=== PATIENT | female | born 1950 | race African-American/Black ===

== ENCOUNTER → 2017-08-21 | Outpatient (CLI) | payer OTHER | END | disposition home or self-care (01) | LOC: MAMMO 10:59 | DX: Z12.31 Encounter for screening mammogram for malignant neoplasm of breast (principal); I10 Essential (primary) hypertension; R92.0 Mammographic microcalcification found on diagnostic imaging of breast | CPT/HCPCS: 77063; 77067 ==

== ENCOUNTER → 2017-08-25 | Outpatient (CLI) | payer OTHER | END | disposition home or self-care (01) | LOC: MAMMO 13:28 | DX: R92.1 Mammographic calcification found on diagnostic imaging of breast (principal) | CPT/HCPCS: 77065 ==

== ENCOUNTER → 2018-04-09 | Outpatient (CLI) | payer OTHER ==
[2013-08-13 18:27] VITALS: BP 173/83
--- NOTE | 2018-04-12 09:32 | RAD ---
DATE: 04/09/2018 12:45 PM EXAM: MAMMO JAN DIAG LT HISTORY: short-term imaging followup of a probably benign finding in the left breast. COMPARISON: Prior mammographic imaging dating back to 08/21/2017 3-D CC and MLO views of the left breast were performed using digital technique. This study was interpreted with the benefit of Computerized Aided Detection (CAD ). Breast Density: The breast parenchyma is primarily fatty replaced. Breast parenchyma level density A. FINDINGS: The calcifications in the lateral left breast are grossly stable when compared to prior examination. No suspicious left breast mass or architectural distortion is seen. The visualized left axilla is unremarkable. IMPRESSION: Left breast indeterminate microcalcifications, findings for which additional short-term follow-up imaging is advised. BI-RADS CATEGORY: 3 PROBABLY BENIGN FINDING(S)-SHORT INTERVAL FOLLOW-UP SUGGESTED RECOMMENDED FOLLOW-UP: 6M 6 MONTH FOLLOW-UP. Follow-up 6 month mammographic imaging of the left breast is recommended. At that point the patient will be due for contralateral screening examination. PQRS compliance statement: Patient information was entered into a reminder system with a target due date 09/07/2018 for the next mammogram. Mammography is a sensitive method for finding small breast cancers, but it does not detect them all and is not a substitute for careful clinical examination. A negative mammogram does not negate a clinically suspicious finding and should not result in delay in biopsying a clinically suspicious abnormality. "Our facility is accredited by the [employer] Mammography [employer]." REILLYD
== END | disposition home or self-care (01) ==
LOC: MAMMO 10:37
PROVIDERS: ATTEND Pediatrics
DX: Z09 Encounter for follow-up examination after completed treatment for conditions other than malignant neoplasm (principal); R92.8 Other abnormal and inconclusive findings on diagnostic imaging of breast
CPT/HCPCS: 77065; G0279; 77061

== ENCOUNTER → 2018-09-01 | Outpatient (CLI) | payer OTHER ==
[2013-08-13 18:27] VITALS: BP 173/83
--- NOTE | 2018-09-02 07:46 | RAD ---
DATE: 09/01/2018 EXAM: DIGITAL DIAGNOSTIC BILATERAL HISTORY: 6 month follow-up on left COMPARISON: 04/09/2018, 08/25/2017, 08/21/2017 This study was interpreted with the benefit of Computerized Aided Detection (CAD). Breast Density: FATTY The breast parenchyma is primarily fatty replaced. Breast parenchyma level density A. FINDINGS: 2-D and 3-D tomosynthesis imaging was performed in CC and MLO projections. No new or enlarging breast densities are seen. There are coarse benign calcifications in the left breast. A cluster of microcalcifications in the posterolateral aspect of the left breast is unchanged. No new abnormality is detected. IMPRESSION: Unchanged probably benign left breast microcalcifications. Further mammographic surveillance consisting of left mammograms in 6 months and bilateral mammography at one year is suggested. BI-RADS CATEGORY: 3 PROBABLY BENIGN FINDING(S)-SHORT INTERVAL FOLLOW-UP SUGGESTED RECOMMENDED FOLLOW-UP: 6M 6 MONTH FOLLOW-UP PQRS compliance statement: Patient information was entered into a reminder system with a target due date for the next mammogram. Mammography is a sensitive method for finding small breast cancers, but it does not detect them all and is not a substitute for careful clinical examination. A negative mammogram does not negate a clinically suspicious finding and should not result in delay in biopsying a clinically suspicious abnormality. "Our facility is accredited by the [employer] Mammography [employer]."
== END | disposition home or self-care (01) ==
LOC: MAMMO 13:33
PROVIDERS: ATTEND Pediatrics
DX: R92.1 Mammographic calcification found on diagnostic imaging of breast (principal)
CPT/HCPCS: 77066

== ENCOUNTER → 2019-03-07 | Outpatient (CLI) | payer OTHER ==
[2013-08-13 18:27] VITALS: BP 173/83
--- NOTE | 2019-03-07 11:42 | RAD ---
DATE: March 07, 2019 EXAM: MAMMO JAN DIAG LT HISTORY: Follow-up of calcifications of the posterior upper aspect of the left breast in the MLO projection. COMPARISON: September 01, 2018 This study was interpreted with the benefit of Computerized Aided Detection (CAD). 2-D digital mammographic views of the left breast were performed in the CC and MLO projections. 3-D digital tomosynthesis images of the left breast were performed in the CC and MLO projections and reviewed on a computer workstation. FINDINGS: Breast Density: FATTY The breast parenchyma is primarily fatty replaced. Breast parenchyma level density A.. There are no new dominant suspicious masses, new suspicious pleomorphic microcalcifications or evidence of architectural distortion. The group of small calcifications within the upper posterior aspect of the left breast in the MLO projection are stable and most likely are benign. IMPRESSION: Stable calcifications of the left breast. Stable mammogram of the left breast. Recommend bilateral mammography in 6 months. BI-RADS CATEGORY: 3 PROBABLE BENIGN-SHORT TERM F/U RECOMMENDED FOLLOW-UP: 6M 6 MONTH FOLLOW-UP PQRS compliance statement: Patient information was entered into a reminder system with a target due date September 06, 2019 for the next mammogram. Mammography is a sensitive method for finding small breast cancers, but it does not detect them all and is not a substitute for careful clinical examination. A negative mammogram does not negate a clinically suspicious finding and should not result in delay in biopsying a clinically suspicious abnormality. "Our facility is accredited by the [employer] Mammography [employer]." The patient's breast density may affect the ability of mammography to detect breast cancer. There are 4 categories of breast density, A, B, C and D. Breast density A means that most of the breast tissue is replaced with adipose tissue and therefore is not dense. Breast density B means that the breast tissue is mildly dense and scattered. Breast density C means that the breast tissue is heterogeneously dense. Breast density D means that the breast tissue is very dense. Breast densities especially C and D may decrease the sensitivity of mammography to detect breast cancer. Therefore, the patient may benefit from 3-D breast mammography (3D breast tomography) as a part of their screening mammogram. Insurance may or may not pay for this additional imaging. The patient's breast density based on today's mammogram is category A.
== END | disposition home or self-care (01) ==
LOC: MAMMO 14:09
PROVIDERS: ATTEND Pediatrics
DX: R92.1 Mammographic calcification found on diagnostic imaging of breast (principal); N63.0 Unspecified lump in unspecified breast
CPT/HCPCS: 77065; G0279; 77061

== ENCOUNTER → 2019-09-12 | Outpatient (CLI) | payer OTHER ==
[2013-08-13 18:27] VITALS: BP 173/83
--- NOTE | 2019-09-12 11:51 | RAD ---
DATE: 09/12/2019 10:49 AM EXAM: DIGITAL DIAGNOSTIC BILATERAL HISTORY: Six-month follow-up probably benign left breast calcifications COMPARISON: Left digital diagnostic mammogram of 03/07/2019, 09/01/2018 bilateral mammogram, left diagnostic mammogram of 04/09/2018 and bilateral mammogram of 08/21/2017. Bilateral CC and MLO views of the breasts were performed. Bilateral breast tomosynthesis was performed in CC and MLO projections. This study was interpreted with the benefit of Computerized Aided Detection (CAD). FINDINGS: Breast Density: FATTY The Breast Parenchyma is primarily fatty replaced. Breast parenchyma level density A. Stable benign calcifications in the left breast. No suspicious masses, microcalcifications or architectural distortion is present to suggest malignancy in either breast. The visualized axillae are unremarkable. IMPRESSION: No mammographic evidence of malignancy. BI-RADS CATEGORY: 2 BENIGN FINDING(S) RECOMMENDED FOLLOW-UP: 12M 12 MONTH FOLLOW-UP Annual screening mammography is recommended, unless clinically indicated sooner based on symptoms or change in physical exam. PQRS compliance statement: Patient information was entered into a reminder system with a target due date 09/12/2020 for the next mammogram. Mammography is a sensitive method for finding small breast cancers, but it does not detect them all and is not a substitute for careful clinical examination. A negative mammogram does not negate a clinically suspicious finding and should not result in delay in biopsying a clinically suspicious abnormality. "Our facility is accredited by the [employer] Mammography [employer]."
== END | disposition home or self-care (01) ==
LOC: MAMMO 10:21
PROVIDERS: ATTEND Nurse Practitioner
DX: R92.8 Other abnormal and inconclusive findings on diagnostic imaging of breast (principal); N64.89 Other specified disorders of breast
CPT/HCPCS: 77066

== ENCOUNTER → 2020-10-04 | Outpatient (CLI) | payer OTHER ==
[2013-08-13 18:27] VITALS: BP 173/83
--- NOTE | 2020-10-04 10:41 | RAD ---
EXAM: Bilateral digital screening mammogram with tomosynthesis. HISTORY: 70-year-old female presents for screening mammography. TECHNIQUE: Full-field digital craniocaudal and mediolateral oblique 2D and 3D tomosynthesis images of both breasts are obtained for evaluation. Computer aided detection was applied. COMPARISON: 08/21/2017 and 09/12/2019 BREAST PARENCHYMAL DENSITY: Level A - Mostly fat. FINDINGS: There has been minimal interval increase in the size of a nodular density within the 3:00 p osition of the left breast at mid depth. The slow interval exchange architect three-year. Favors a benign et iology such as a cyst. There are additional similar-appearing suspected cysts elsewhere within both b reasts. There are additional areas of nodularity which are stable in appearance. There are benign anurag cifications. IMPRESSION: BI-RADS Category 2: Benign finding(s). RECOMMENDATION: Annual mammography is recommended. If your mammogram demonstrates that you have dense breast tissue, which could hide abnormalities, and if you have other risk factors for breast cancer that have been identified, you might benefit from s upplemental screening tests that may be suggested by your ordering physician. Dense breast tissue, i n and of itself, is a relatively common condition. This information is not provided to cause undue c oncern, but rather to raise your awareness and to promote discussion with your physician regarding th e presence of other risk factors, in addition to dense breast tissue. A report of your mammography re sults will be sent to you and your physician. You should contact your physician if you have any ques tions or concerns regarding this report. Mammography is a sensitive method for finding small breast cancers, but it does not detect them all a nd is not a substitute for careful clinical examination. A negative mammogram does not negate a clin ically suspicious finding and should not result in delay in biopsying a clinically suspicious abnorma lity. PQRS compliance statement - Patient information was entered into a reminder system with a target due date for the next mammogram. "Our facility is accredited by the [employer] Mammography [employer]." Electronically signed by: Christa Huang MD (10/04/2020 10:38 AM) [id number]
== END ==
LOC: MAMMO 08:33
PROVIDERS: ATTEND Pediatrics
DX: Z12.31 Encounter for screening mammogram for malignant neoplasm of breast (principal); N63.42 Unspecified lump in left breast, subareolar; R92.1 Mammographic calcification found on diagnostic imaging of breast
CPT/HCPCS: 77063; 77067